=== PATIENT | female | born 1965 | race Caucasian/White ===

== ENCOUNTER 2024-08-08 04:02 | Emergency (ER) | payer BC ==
[2024-08-08] VITALS (7 sets, daily range): BP systolic 119–152; BP diastolic 70–85; PULSE 64–70; RESP 16–18; TEMP 98; O2SAT 93–95
[~2024-08-08] VITALS: Ht 177.8 cm; Wt 59.0 kg
[2024-08-08 04:50] LABS: +ADD MANUAL DIFF(NO CHRG) NO; BASOPHIL % 0.4 % (0.1-1.2); EOSINOPHIL # 0.3 10^3/uL (0.0-0.2); EOSINOPHIL % 3.8 % (0.0-5.0); HEMATOCRIT(ML) 39.7 % (36.0-46.0); HEMOGLOBIN 12.9 g/dL (12.0-15.0); LYMPHOCYTES # 1.79 10^3/uL1 (1.0-4.8); LYMPHOCYTES % 21.7 % (24.0-44.0); MEAN CORP HGB 31.2 pg (26-34); MEAN CORP HGB CONCENTRATION 32.5 g/dL (33-36.5); MEAN CORP VOLUME 96.1 fL (78-100); MONOCYTES # 0.7 10^3/uL (0.3-0.8); NEUTROPHIL # 5.4 10^3/uL (1.8-7.7); NEUTROPHILS % 64.9 % (41.0-85.0); PLATELET COUNT 378 10^3/uL (150-400); RED BLOOD CELL 4.13 10^6/uL (4.00-5.20); RED CELL DISTRIBUTION WIDTH 12.7 % (11.5-14.5); WHITE BLOOD CELL 8.2 10^3/uL (4.5-11.0)
[2024-08-08 04:50] LABS: ABG OX -sO2 89.5 % (94.0-98.0); ABG PCO2 35.3 mmHg (32.0-45.0); ABG PH 7.416 (7.350-7.450); BE(B) -1.8 mmol/L (-2.0-3.0); HCO3act 22.2 mmol/L (21.0-28.0); pO2 57.4 mmHg (83.0-108.0); tHb 13.3 g/dL (12.0-16.0)
[2024-08-08] MEDS ORDERED: BACL10TA PO (04:57)
[2024-08-08] MEDS ORDERED: LEVO112T5 PO (04:57)
[2024-08-08] MEDS ORDERED: DICY10CA PO (04:57)
[2024-08-08] MEDS ORDERED: [UNRECOGNIZED DRUG - CODE] PO (04:57)
[2024-08-08] MEDS ORDERED: ONDA-226 PO (04:57)
[2024-08-08] MEDS ORDERED: [UNRECOGNIZED DRUG - CODE] PO (04:57)
[2024-08-08] MEDS ORDERED: COLE1TAB2 PO (04:57)
[2024-08-08] MEDS ORDERED: IPRA3AMP25 IH (04:57)
[2024-08-08] MEDS ORDERED: CLON2TAB9 PO (04:57)
[2024-08-08] MEDS ORDERED: LACT10SO55 PO (04:57)
[2024-08-08] MEDS ORDERED: NIAC500C8 PO (04:57)
[2024-08-08] MEDS ORDERED: APIX5TAB PO (04:57)
[2024-08-08] MEDS ORDERED: PARO40TA3 PO (04:57)
[2024-08-08] MEDS ORDERED: HYDR-3097 PO (04:57)
[2024-08-08 05:17] LABS: ALBUMIN(ML) 3.3 g/dL (3.4-5.0); ALBUMIN/GLOBULIN RATIO 1.137; ANION GAP 12.5; BUN/CREATININE RATIO 9.41 (10.0-20.0); CALCIUM 8.9 mg/dL (8.4-10.5); CREATININE SERUM 0.85 mg/dL (0.59-1.40); EST GFR, NON-AA 68.2 (>/=60); POTASSIUM 3.5 mmol/L (3.6-5.2)
[2024-08-08] MEDS: TORADOL IV STA (06:44)
== END 2024-08-08 07:40 | disposition home or self-care (01) ==
LOC: ER 04:02 → EDBD 04:02 → ER 07:40
DX: S40.012A Contusion of left shoulder, initial encounter (principal); S10.93XA Contusion of unspecified part of neck, initial encounter; S09.90XA Unspecified injury of head, initial encounter; Z86.73 Personal history of transient ischemic attack (TIA), and cerebral infarction without residual deficits; Z88.5 Allergy status to narcotic agent; W06.XXXA Fall from bed, initial encounter; Y93.89 Activity, other specified; Y92.89 Other specified places as the place of occurrence of the external cause; Y99.8 Other external cause status
CPT/HCPCS: 36415; 36600; 70450; 71045; 72125; 72170; 80053; 82550; 82553; 82803; 83880; 84484; 85025; 93005; 96374; 99285; 73030-LT; 73130-LT; 73550-LT; 73590-LT; 73630-LT

== ENCOUNTER 2024-09-11 02:50 | Emergency (ER) | payer BC ==
[~2024-09-11] VITALS: Ht 165.1 cm; Wt 54.4 kg
[~2024-09-11 02:50] MED LIST: APIX5TAB PO; BACL10TA PO; CLON2TAB9 PO; COLE1TAB2 PO; DICY10CA PO; HYDR-3097 PO; IPRA3AMP25 IH; LACT10SO55 PO; LEVO112T5 PO; NIAC500C8 PO; ONDA-226 PO; PARO40TA3 PO; [UNRECOGNIZED DRUG - CODE] PO; [UNRECOGNIZED DRUG - CODE] PO
[2024-09-11] MEDS ORDERED: MAGNESIUM 2 GRAM/50ML 50 ML IV ONE (03:15)
[2024-09-11] MEDS: MAGNESIUM 2 GRAM/50ML 50 ML IV STA (03:17)
[2024-09-11 03:47] LABS: +ADD MANUAL DIFF(NO CHRG) NO; BASOPHIL % 0.6 % (0.1-1.2); EOSINOPHIL # 0.1 10^3/uL (0.0-0.2); EOSINOPHIL % 2.2 % (0.0-5.0); HEMATOCRIT(ML) 41.4 % (36.0-46.0); HEMOGLOBIN 13.1 g/dL (12.0-15.0); LYMPHOCYTES # 1.52 10^3/uL1 (1.0-4.8); LYMPHOCYTES % 24.1 % (24.0-44.0); MEAN CORP HGB 30.9 pg (26-34); MEAN CORP HGB CONCENTRATION 31.6 g/dL (33-36.5); MEAN CORP VOLUME 97.6 fL (78-100); MONOCYTES # 0.6 10^3/uL (0.3-0.8); MONOCYTES % 9.4 % (5.0-12.0); NEUTROPHILS % 63.5 % (41.0-85.0); PLATELET COUNT 296 10^3/uL (150-400); RED BLOOD CELL 4.24 10^6/uL (4.00-5.20); RED CELL DISTRIBUTION WIDTH 13.2 % (11.5-14.5); WHITE BLOOD CELL 6.3 10^3/uL (4.5-11.0)
[2024-09-11 03:55] VITALS: BP 152/95; PULSE 80; RESP 18; TEMP 97.9; O2SAT 90
[2024-09-11 04:45] LABS: ALBUMIN(ML) 3.6 g/dL (3.4-5.0); ALBUMIN/GLOBULIN RATIO 1.2; ANION GAP 12.9; BUN/CREATININE RATIO 7.22 (10.0-20.0); CALCIUM 9.1 mg/dL (8.4-10.5); CARBON DIOXIDE 26.7 mmol/L (20.0-32); CREATININE SERUM 0.83 mg/dL (0.59-1.40); EST GFR, NON-AA 70.1 (>/=60); POTASSIUM 3.6 mmol/L (3.6-5.2)
[2024-09-11 05:10] VITALS: BP 119/83; PULSE 74; RESP 16; TEMP 98.1; O2SAT 94
[2024-09-14] MEDS ORDERED: TRAZ-163 PO (18:08)
[2024-09-14] MEDS ORDERED: ESCI10TA10 PO (18:08)
[2024-09-14] MEDS ORDERED: CLON1TAB11 PO (18:08)
[2024-09-14] MEDS ORDERED: CHOL500062 PO (18:12)
== END 2024-09-11 05:45 ==
LOC: ER 02:50 → EDUNIT# 02:51 → EEVIPCON 03:00 → EDBD 03:00 → ER 03:00
DX: J44.1 Chronic obstructive pulmonary disease with (acute) exacerbation (principal); G81.94 Hemiplegia, unspecified affecting left nondominant side; F41.9 Anxiety disorder, unspecified; F17.200 Nicotine dependence, unspecified, uncomplicated; Z86.73 Personal history of transient ischemic attack (TIA), and cerebral infarction without residual deficits; Z88.5 Allergy status to narcotic agent; Z79.899 Other long term (current) drug therapy
CPT/HCPCS: 99284; 96365; 71045; 80053; 85025; 36415; 83735; J3475